=== PATIENT | female | born 1985 | race Caucasian/White ===

== ENCOUNTER 2021-07-11 23:00 | Outpatient (CLI) | payer BC ==
[~2021-07-11 23:00] MED LIST: ESCITALOPRAM; PERCOCET 325 MG1 TA2 PO; birth control
--- NOTE | 2021-07-11 23:00 | NUR ---
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 DENIES LEAKING OF FLUID. REPORTS VERY ACTIVE ACTIVITY. ALSO REPORTS HX OF X2 @ 37 WEEKS. PT'S OB IS IN [place], AND PRODUCTION TEAM ADVISOR IS ALSO LOCATED IN [place]. ER NURSE TO NURSE REPORT FROM [facility] REPORTS PT HAS HAD A FEW CONTRACTIONS WHILE IN THE ER, RANGING FROM EVERY 15 MINUTES, TO EVERY 45 MINUTES. SVE UPON LEAVING [facility] WAS "PT IS DILATED TO A 1". [facility] STAFF ALSO STATES THAT PATIENT "DOES HAVE BACTERIAL VAGINOSIS, AND A YEAST INFECTION THAT AT THIS TIME HAS BEEN UNTREATED." PT ASSISTED INTO BED, EFM/TOCO PLACED, CATEGORY 1 STRIP AT THIS TIME. VITAL SIGNS STABLE. UPON ARRIVAL PT EXPERIENCED 1 CONTRACTION AFTER BEING HERE 20 MINUTES. PT ALSO STATES SHE "HAD [address] HERE FROM [facility] IN THE AMBULANCE." LR INFUSING TO RIGHT WRIST IV. NOTIFIED OF PT ARRIVAL, SEE PHYS. NOTIFICATION.
[2021-07-11] MEDS ORDERED: PRENATAL (23:14)
[2021-07-11] MEDS ORDERED: CELEXA40 MG PO (23:14)
[2021-07-11] MEDS ORDERED: ZANTAC-360 (FAM10 MG PO (23:15)
[2021-07-11 23:30] VITALS: BP 118/64; PULSE 71; TEMP 98.2
[2021-07-12] VITALS (12 sets, daily range): BP systolic 93–123; BP diastolic 51–68; PULSE 63–76; TEMP 98.1–98.3
--- NOTE | 2021-07-12 01:48 | NUR ---
PT REPORTS SHE IS NO LONGER FEELING CONTRACTIONS. STATES "I JUST FEEL AND ACHY ALL OVER NOW, BUT MY CONTRACTIONS I FEEL LIKE HAVE STOPPED." PT HAS BEEN SLEEPING, BABY REMAINS VERY ACTIVE AND CATEGORY 1. DIFFICULTY TRACING EFM AT TIMES DUE TO ACTIVITY AND MATERNAL HABITUS. LR REMAINS INFUSING PER ORDER. PT DENIES FURTHER NEEDS AT THIS TIME, CALL LIGHT WITHIN REACH UPON EXITING ROOM.
--- NOTE | 2021-07-12 02:10 | NUR ---
PT C/O SEVERE HEATBURN. SITTING UP AND COUGHING/PUKING AT THIS TIME DUE TO GERD. INCONTINENT OF URINE WITH COUGHING SPELL & EMESIS. PO TUMS ADMINISTERED X2, CALL TO TO REQUEST SOMETHING STRONGER THAN TUMS. DIFFICULTY TRACING EFM THROUGHOUT THIS EVENT DUE TO MATERNAL POSITIONING. SEE PHYS. NOTIFICATION.
--- NOTE | 2021-07-12 03:37 | NUR ---
PT REPORTS RELIEF FROM IV PEPCID. RESTING WITH EYES CLOSED AND COMFORTABLE IN BED AT THIS TIME. DENIES FEELING ANY CONTRACTIONS RECENTLY, TOCO TRACING APPROPRIATELY AND NO FURTHER CONTRACTIONS NOTED. CATEGORY 1 STRIP.
--- NOTE | 2021-07-12 07:18 | NUR ---
1667 DR KENNEDY AT BEDSIDE. ORDERS TO DISCONTINUE EFM AND IV. ALL DISCHARGE INSTRUCTIONS GEIVEN TO PATIENT AND BY DR KENNEDY. ALL QUESTIONS ANSWERED AT THIS TIME. VERBAL UNDERSTANDING NOTED. IV DC'D
--- NOTE | 2021-07-12 07:20 | NUR ---
0715 PATIENT DISMISSED VIA AMBULATION TO POV.
== END 2021-07-12 07:15 | disposition home or self-care (01) ==
LOC: LDR 23:00 → LDRO 23:00 → OB 23:00 → LDR 23:00 → LDRO 07-12 07:15
DX: O47.03 False labor before 37 completed weeks of gestation, third trimester (principal); Z3A.35 35 weeks gestation of pregnancy
CPT/HCPCS: OP; J0702